=== PATIENT | female | born 1955 ===

== ENCOUNTER 2023-09-10 06:54 | Day surgery (SDC) | payer OTHER | END 2023-09-10 11:15 | disposition home or self-care (01) | LOC: AMB-ENDOS 06:54 | PROVIDERS: ATTEND Internal Medicine | DX: K58.9 Irritable bowel syndrome, unspecified (principal); N73.6 Female pelvic peritoneal adhesions (postinfective); D50.9 Iron deficiency anemia, unspecified; Z88.6 Allergy status to analgesic agent ==